=== PATIENT | male | born 1980 | race Two or more races ===

== ENCOUNTER 2023-09-10 22:52 | Inpatient (IN) | payer OTHER ==
[~2023-09-10] VITALS: Ht 175.3 cm; Wt 71.7 kg
[2023-09-10] MEDS: CLINDAMYCIN 600 MG in IV D5W 100 ML IV ONE (00:07)
[2023-09-10] MEDS ORDERED: IOHEXOL-350 100 ML VIAL IV ONE (23:24)
[2023-09-10] MEDS ORDERED: CT SWABBABLE VALVE TRANS SET 1 EA INFUS.SET MC ONE (23:25)
[2023-09-10] MEDS ORDERED: IV NS 0.9% 250 ML IV ONE (23:25)
[2023-09-10] MEDS ORDERED: ONDANSETRON HCL/PF 4 MG/2 ML VIAL ONE (23:28)
[2023-09-10] MEDS ORDERED: MORPHINE SULFATE INJ 4 MG/ML DISP.SYRIN ONE (23:28)
[2023-09-10] MEDS ORDERED: PIPERACI/TAZO 3.375GM/D5W 50ML PB IV ONE (23:28)
[2023-09-10] MEDS ORDERED: ACETAMINOPHEN ES 500 MG TABLET ONE (23:28)
[2023-09-10] MEDS ORDERED: ONDANSETRON HCL/PF 4 MG/2 ML VIAL IVP ONE (23:30)
[2023-09-10] MEDS ORDERED: IV NS 0.9% 1,000 ML BAG IV ONE (23:30)
[2023-09-10] MEDS ORDERED: PIPERACILLIN /TAZOBACTAM 3.375 G in IV D5W 50 ML IV ONE (23:30)
[2023-09-10] MEDS ORDERED: ACETAMINOPHEN ES 500 MG TABLET PO ONE (23:30)
[2023-09-10] MEDS ORDERED: MORPHINE SULFATE INJ 2 MG/ML DISP.SYRIN IV ONE (23:30)
[2023-09-10] MEDS ORDERED: VANCOMYCIN 1 GM in IV D5W 250 ML IV ONE (23:30)
[2023-09-10 23:31] LABS: BASOPHILS % (AUTO) 0.1 % (0.0-2.0); HEMATOCRIT 38 % (39-51); HEMOGLOBIN 12.2 g/dL (13.5-17.5); LYMPHOCYTES # (AUTO) 2.4 K/uL (0.8-4.8); LYMPHOCYTES % (AUTO) 19.7 % (20.0-44.0); MEAN CORPUSCULAR HEMOGLOBIN 29 PG (26.0-33.0); MEAN CORPUSCULAR HGB CONC 33 g/dl (31.0-36.0); MEAN CORPUSCULAR VOLUME 90 fL (80-96); MONOCYTES # (AUTO) 0.9 K/uL (0.1-1.30); MONOCYTES % (AUTO) 7.1 % (2.0-12.0); NEUTROPHILS # (AUTO) 8.9 K/uL (1.8-8.9); NEUTROPHILS % (AUTO) 73.1 % (43.0-81.0); PLATELET COUNT (AUTO) 183 K/uL (150-450); RED BLOOD CELL COUNT(AUTO) 4.17 MIL/uL (4.5-6.0); RED CELL DISTRIBUTION WIDTH 13.7 % (11.5-15.0); WHITE BLOOD COUNT (AUTO) 12.2 K/uL (4.3-11.0)
[2023-09-10 23:45] LABS: ALANINE AMINOTRANSFERASE 79 U/L (12-78); ALBUMIN 3.1 g/dL (3.4-5.0); ALKALINE PHOSPHATASE 151 U/L (46-116); ASPARTATE AMINOTRANSFERASE 35 U/L (15-37); BILIRUBIN,DIRECT 0.6 mg/dL (0.0-0.2); BILIRUBIN,TOTAL 1.9 mg/dL (0.2-1.0); CALCIUM, SERUM 8.5 mg/dL (8.5-10.1); CARBON DIOXIDE 28 mmol/L (21-32); CHLORIDE 93 mmol/L (98-107); CREATININE 1.2 mg/dL (0.6-1.3); GLUCOSE 377 mg/dL (74-106); POTASSIUM 4.6 mmol/L (3.5-5.1); SODIUM SERUM 128 mmol/L (136-145); TOTAL PROTEIN, SERUM 7.2 g/dL (6.4-8.2); UREA NITROGEN, BLOOD 15 mg/dL (7-18)
[2023-09-10 23:51] LABS: LACTIC ACID 3.4 mmol/L (0.4-2.0)
[2023-09-10 23:51] LABS: APPEARANCE,URINE CLEAR (CLEAR); BILIRUBIN,URINE NEGATIVE (NEGATIVE); BLOOD, URINE 1+ Ery/uL (NEGATIVE); COLOR,URINE YELLOW (YELLOW); KETONES,URINE 1+ mg/dL (NEGATIVE); LEUKOCYTE ESTERASE ,URINE NEGATIVE (NEGATIVE); NITRITE, URINE NEGATIVE (NEGATIVE); PROTEIN,URINE TRACE mg/dl (NEGATIVE); UGLUCOSE 3+ mg/dL (NEGATIVE)
[2023-09-10 23:52] LABS: ADD URINE CULTURE NO; BACTERIA,URINE Rare /HPF (None Seen); SQUAMOUS EPITHELIAL CELL,UR Few /HPF (None Seen); WBC,URINE 0-2 /HPF (0-3)
[2023-09-10 23:54] LABS: INR 1.31 (0.91-1.10); PARTIAL THROMBOPLASTIN TIME 34.7 SEC (24.3-34.3); PROTHROMBIN TIME 13.6 SECS (9.2-11.1)
[2023-09-11] VITALS (16 sets, daily range): BP systolic 98–126; BP diastolic 56–83; TEMP 97.7–98.7; O2SAT 97–100
[2023-09-11] MEDS ORDERED: CLINDAMYCIN 900 MG/6 ML VIAL ONE (00:04)
[2023-09-11] MEDS: CLINDAMYCIN 600 MG in IV D5W 100 ML IV ONE (00:07)
[2023-09-11] MEDS ORDERED: MORPHINE SULFATE INJ 2 MG/ML DISP.SYRIN IV ONE ×2 (00:30→07:30)
[2023-09-11] MEDS ORDERED: MORPHINE SULFATE INJ 4 MG/ML DISP.SYRIN ONE ×2 (00:59→09:10)
[2023-09-11] MEDS ORDERED: VANCOMYCIN 1 GM /D5W 250 ML PB IV ONE (01:50)
[2023-09-11 02:04] LABS: C-REACTIVE PROTEIN 23.57 mg/dL (0.0-0.30)
[2023-09-11] MEDS ORDERED: METF-440 PO (08:38)
[2023-09-11] MEDS ORDERED: QUET100T PO (08:38)
[2023-09-11] MEDS ORDERED: BUPR1FIL3 SL (08:38)
[2023-09-11] MEDS ORDERED: ONDA4TAB5 PO (08:38)
[2023-09-11] MEDS ORDERED: DEXTROSE 50%-WATER 50 ML DISP.SYRIN IV PRN (12:00)
[2023-09-11] MEDS: BLOOD SUGAR DIAGNOSTIC 1 EACH STRIP IN SCH ×2 (12:18→17:08)
[2023-09-11] MEDS: HYDROMORPHONE 1 MG/1 ML DISP.SYRIN IV PRN ×2 (12:19→15:32)
[2023-09-11] MEDS ORDERED: ONDANSETRON HCL/PF 4 MG/2 ML VIAL IV PRN (12:30)
[2023-09-11] MEDS: IV LR 1000 ML 1,000 ML IV PRN (12:52)
[2023-09-11] MEDS: ENOXAPARIN SODIUM 40 MG/0.4 ML DISP.SYRIN SQ SCH (13:30)
[2023-09-11] MEDS ORDERED: QUETIAPINE FUMARATE 100 MG TABLET PO PRN (13:30)
[2023-09-11] MEDS ORDERED: ONDANSETRON HCL/PF 4 MG/2 ML VIAL IVP PRN (13:30)
[2023-09-11] MEDS ORDERED: Z GUARD REMEDY 4 OZ OINT TP PRN (13:30)
[2023-09-11] MEDS: PIPERACILLIN /TAZOBACTAM 3.375 G in IV D5W 50 ML IV SCH (17:09)
[2023-09-11] MEDS ORDERED: MIDAZOLAM HCL 2 MG/2ML VIAL ONE (18:24)
[2023-09-11] MEDS ORDERED: FENTANYL PF 250MCG/5ML AMPUL ONE (18:24)
[2023-09-11] MEDS ORDERED: ROCURONIUM BROMIDE 50 MG/5 ML ONE (18:25)
[2023-09-11] MEDS ORDERED: LABETALOL HCL IV 100MG VIAL ONE (18:25)
[2023-09-11] MEDS ORDERED: LIDOCAINE 1% INJ 50 ML MDV IJ ONE (18:42)
[2023-09-11] MEDS ORDERED: BUPIVACAINE MPF 0.5% W/EPI INJ 30 ML VIAL ONE (18:43)
[2023-09-11] MEDS ORDERED: DAKINS FULL STRENGTH (0.5%) 480 ML BOTTLE TOP ONE (19:30)
[2023-09-11] MEDS ORDERED: HYDROMORPHONE INJ 2 MG/ML DISP.SYRIN ONE ×2 (19:50→20:37)
[2023-09-11] MEDS: CLINDAMYCIN 600 MG in IV D5W 50 ML IV SCH (21:39)
[2023-09-12] VITALS (33 sets, daily range): BP systolic 87–112; BP diastolic 57–75; TEMP 98.7–101; O2SAT 99–100
[2023-09-12] MEDS: PIPERACILLIN /TAZOBACTAM 3.375 G in IV D5W 50 ML IV SCH ×2 (00:23→05:27)
[2023-09-12] MEDS: IV LR 1000 ML 1,000 ML IV PRN ×2 (00:28→10:56)
[2023-09-12] MEDS: BLOOD SUGAR DIAGNOSTIC 1 EACH STRIP IN SCH ×4 (00:47→18:13)
[2023-09-12] MEDS: INSULIN REGULAR, HUMAN 100 UNIT/ML 3 ML VIAL SQ PRN ×4 (00:50→18:22)
[2023-09-12] MEDS: HYDROMORPHONE 1 MG/1 ML DISP.SYRIN IV PRN ×3 (04:06→20:32)
[2023-09-12] MEDS: CLINDAMYCIN 600 MG in IV D5W 50 ML IV SCH ×3 (04:36→20:33)
[2023-09-12 04:49] LABS: BASOPHILS % (AUTO) 0.2 % (0.0-2.0); EOSINOPHILS % (AUTO) 0.1 % (0.0-6.0); HEMATOCRIT 31 % (39-51); HEMOGLOBIN 10.4 g/dL (13.5-17.5); LYMPHOCYTES # (AUTO) 1.2 K/uL (0.8-4.8); LYMPHOCYTES % (AUTO) 18.6 % (20.0-44.0); MEAN CORPUSCULAR HEMOGLOBIN 30 PG (26.0-33.0); MEAN CORPUSCULAR HGB CONC 34 g/dl (31.0-36.0); MEAN CORPUSCULAR VOLUME 90 fL (80-96); MONOCYTES # (AUTO) 0.2 K/uL (0.1-1.30); MONOCYTES % (AUTO) 3.4 % (2.0-12.0); NEUTROPHILS % (AUTO) 77.7 % (43.0-81.0); PLATELET COUNT (AUTO) 100 K/uL (150-450); RED BLOOD CELL COUNT(AUTO) 3.43 MIL/uL (4.5-6.0); RED CELL DISTRIBUTION WIDTH 14.1 % (11.5-15.0); WHITE BLOOD COUNT (AUTO) 6.4 K/uL (4.3-11.0)
[2023-09-12 05:25] LABS: CALCIUM, SERUM 7.6 mg/dL (8.5-10.1); CREATININE 0.8 mg/dL (0.6-1.3); MAGNESIUM 1.8 mg/dL (1.8-2.4); PHOSPHORUS 1.9 mg/dL (2.5-4.9); POTASSIUM 3.5 mmol/L (3.5-5.1)
[2023-09-12] MEDS: ACETAMINOPHEN 325 MG TABLET PO PRN (08:13)
[2023-09-12] MEDS ORDERED: PANTOPRAZOLE 40 MG VIAL IV SCH (09:00)
[2023-09-12] MEDS: DAKINS QUARTER STRENGTH (0.125%) 480 ML BOTTLE TOP SCH (09:28)
[2023-09-12] MEDS ORDERED: K PHOS NEUTRAL 250 MG TABLET PO ONE (13:00)
[2023-09-12] MEDS: NICOTINE PATCH (21MG) 21 MG PATCH.TD24 TD SCH (13:15)
[2023-09-12] MEDS: PIPERACILLIN /TAZOBACTAM 3.375 G in IV D5W 100 ML IV SCH ×2 (13:47→21:35)
[2023-09-12] MEDS: ENOXAPARIN SODIUM 40 MG/0.4 ML DISP.SYRIN SQ SCH (13:52)
[2023-09-13] VITALS (24 sets, daily range): BP systolic 89–111; BP diastolic 56–78; TEMP 98.7–99.1; O2SAT 97–100
[2023-09-13] MEDS: IV LR 1000 ML 1,000 ML IV PRN ×3 (00:03→19:53)
[2023-09-13] MEDS: BLOOD SUGAR DIAGNOSTIC 1 EACH STRIP IN SCH ×5 (00:42→21:25)
[2023-09-13] MEDS: INSULIN REGULAR, HUMAN 100 UNIT/ML 3 ML VIAL SQ PRN ×5 (00:45→21:28)
[2023-09-13] MEDS: CLINDAMYCIN 600 MG in IV D5W 50 ML IV SCH ×3 (04:30→20:55)
[2023-09-13] MEDS: HYDROMORPHONE 1 MG/1 ML DISP.SYRIN IV PRN ×6 (04:31→22:31)
[2023-09-13] MEDS: PIPERACILLIN /TAZOBACTAM 3.375 G in IV D5W 100 ML IV SCH ×3 (05:18→20:54)
[2023-09-13] MEDS: NICOTINE PATCH (21MG) 21 MG PATCH.TD24 TD SCH (09:08)
[2023-09-13] MEDS: DAKINS QUARTER STRENGTH (0.125%) 480 ML BOTTLE TOP SCH (09:16)
[2023-09-13] MEDS: ENOXAPARIN SODIUM 40 MG/0.4 ML DISP.SYRIN SQ SCH (12:33)
[2023-09-13 17:06] LABS: INR 0.98 (0.91-1.10); PROTHROMBIN TIME 10.4 SECS (9.2-11.1)
[2023-09-13] MEDS ORDERED: DEXTROSE 50%-WATER 50 ML DISP.SYRIN IV PRN (20:00)
[2023-09-14] VITALS (28 sets, daily range): BP systolic 95–143; BP diastolic 53–90; TEMP 97.5–99.5; O2SAT 98–100
[2023-09-14] MEDS: HYDROMORPHONE 1 MG/1 ML DISP.SYRIN IV PRN ×11 (00:31→22:32)
[2023-09-14] MEDS: PIPERACILLIN /TAZOBACTAM 3.375 G in IV D5W 100 ML IV SCH ×3 (04:41→20:35)
[2023-09-14] MEDS: CLINDAMYCIN 600 MG in IV D5W 50 ML IV SCH ×3 (04:41→20:17)
[2023-09-14] MEDS: IV LR 1000 ML 1,000 ML IV PRN ×3 (06:13→23:27)
[2023-09-14] MEDS: NICOTINE PATCH (21MG) 21 MG PATCH.TD24 TD SCH (08:01)
[2023-09-14] MEDS: DAKINS QUARTER STRENGTH (0.125%) 480 ML BOTTLE TOP SCH (08:02)
[2023-09-14] MEDS: PANTOPRAZOLE 40 MG TABLET.DR PO SCH (08:14)
[2023-09-14] MEDS: BLOOD SUGAR DIAGNOSTIC 1 EACH STRIP IN SCH ×4 (08:15→22:37)
[2023-09-14] MEDS: INSULIN REGULAR, HUMAN 100 UNIT/ML 3 ML VIAL SQ PRN ×4 (08:20→22:30)
[2023-09-14 09:28] LABS: BASOPHILS % (AUTO) 0.4 % (0.0-2.0); EOSINOPHILS % (AUTO) 0.4 % (0.0-6.0); HEMATOCRIT 29 % (39-51); HEMOGLOBIN 9.8 g/dL (13.5-17.5); LYMPHOCYTES # (AUTO) 1.1 K/uL (0.8-4.8); LYMPHOCYTES % (AUTO) 13.4 % (20.0-44.0); MEAN CORPUSCULAR HEMOGLOBIN 30 PG (26.0-33.0); MEAN CORPUSCULAR HGB CONC 33 g/dl (31.0-36.0); MEAN CORPUSCULAR VOLUME 90 fL (80-96); MONOCYTES # (AUTO) 0.4 K/uL (0.1-1.30); MONOCYTES % (AUTO) 5.4 % (2.0-12.0); NEUTROPHILS # (AUTO) 6.5 K/uL (1.8-8.9); NEUTROPHILS % (AUTO) 80.4 % (43.0-81.0); PLATELET COUNT (AUTO) 114 K/uL (150-450); RED BLOOD CELL COUNT(AUTO) 3.26 MIL/uL (4.5-6.0); RED CELL DISTRIBUTION WIDTH 14.3 % (11.5-15.0); WHITE BLOOD COUNT (AUTO) 8.1 K/uL (4.3-11.0)
[2023-09-14 09:41] LABS: CALCIUM, SERUM 7.5 mg/dL (8.5-10.1); CREATININE 0.5 mg/dL (0.6-1.3); POTASSIUM 2.9 mmol/L (3.5-5.1)
[2023-09-14 09:48] LABS: LACTIC ACID 1.2 mmol/L (0.4-2.0)
[2023-09-14 10:00] LABS: MAGNESIUM 1.7 mg/dL (1.8-2.4); PHOSPHORUS 2.6 mg/dL (2.5-4.9)
[2023-09-14] MEDS ORDERED: POTASSIUM CHLORIDE 20 MEQ TAB.PRT.SR PO ONE (11:30)
[2023-09-14] MEDS: Magnesium 1GM/D5W 100ML PREMIX 100 ML IV SCH ×2 (12:10→12:38)
[2023-09-14] MEDS: ENOXAPARIN SODIUM 40 MG/0.4 ML DISP.SYRIN SQ SCH (12:39)
[2023-09-14 17:34] LABS: LACTIC ACID 2.3 mmol/L (0.4-2.0)
[2023-09-14 19:54] LABS: BILIRUBIN,DIRECT 0.3 mg/dL (0.0-0.2); BILIRUBIN,TOTAL 0.7 mg/dL (0.2-1.0)
[2023-09-14 20:02] LABS: LACTIC ACID REFLEX 2.2 mmol/L (0.4-1.9)
[2023-09-14] MEDS: ACETAMINOPHEN 325 MG TABLET PO PRN (20:14)
[2023-09-15] VITALS (22 sets, daily range): BP systolic 103–136; BP diastolic 56–84; TEMP 98.7–99; O2SAT 97–100
[2023-09-15] MEDS: CLINDAMYCIN 600 MG in IV D5W 50 ML IV SCH ×3 (04:28→21:09)
[2023-09-15] MEDS: PIPERACILLIN /TAZOBACTAM 3.375 G in IV D5W 100 ML IV SCH ×3 (04:29→21:08)
[2023-09-15] MEDS: HYDROMORPHONE 1 MG/1 ML DISP.SYRIN IV PRN ×6 (05:01→22:18)
[2023-09-15 05:15] LABS: CALCIUM, SERUM 7.7 mg/dL (8.5-10.1); CREATININE 0.5 mg/dL (0.6-1.3); PHOSPHORUS 3.4 mg/dL (2.5-4.9); POTASSIUM 3.2 mmol/L (3.5-5.1)
[2023-09-15 05:27] LABS: BASOPHILS # (AUTO) 0.1 K/uL (0.0-0.2); BASOPHILS % (AUTO) 0.6 % (0.0-2.0); EOSINOPHILS # (AUTO) 0.2 K/uL (0.0-0.7); EOSINOPHILS % (AUTO) 1.8 % (0.0-6.0); HEMATOCRIT 27 % (39-51); HEMOGLOBIN 9.2 g/dL (13.5-17.5); LYMPHOCYTES # (AUTO) 2.6 K/uL (0.8-4.8); LYMPHOCYTES % (AUTO) 29.8 % (20.0-44.0); MEAN CORPUSCULAR HEMOGLOBIN 30 PG (26.0-33.0); MEAN CORPUSCULAR HGB CONC 34 g/dl (31.0-36.0); MEAN CORPUSCULAR VOLUME 90 fL (80-96); MONOCYTES # (AUTO) 0.6 K/uL (0.1-1.30); MONOCYTES % (AUTO) 6.9 % (2.0-12.0); NEUTROPHILS # (AUTO) 5.3 K/uL (1.8-8.9); NEUTROPHILS % (AUTO) 60.9 % (43.0-81.0); PLATELET COUNT (AUTO) 142 K/uL (150-450); RED BLOOD CELL COUNT(AUTO) 3.04 MIL/uL (4.5-6.0); RED CELL DISTRIBUTION WIDTH 14.2 % (11.5-15.0); WHITE BLOOD COUNT (AUTO) 8.6 K/uL (4.3-11.0)
[2023-09-15] MEDS: IV LR 1000 ML 1,000 ML IV PRN ×2 (06:54→12:35)
[2023-09-15] MEDS: BLOOD SUGAR DIAGNOSTIC 1 EACH STRIP IN SCH ×4 (07:41→22:19)
[2023-09-15] MEDS: INSULIN REGULAR, HUMAN 100 UNIT/ML 3 ML VIAL SQ PRN ×4 (07:55→22:30)
[2023-09-15] MEDS: NICOTINE PATCH (21MG) 21 MG PATCH.TD24 TD SCH (08:01)
[2023-09-15] MEDS: PANTOPRAZOLE 40 MG TABLET.DR PO SCH (08:01)
[2023-09-15] MEDS: DAKINS QUARTER STRENGTH (0.125%) 480 ML BOTTLE TOP SCH (08:02)
[2023-09-15] MEDS ORDERED: POTASSIUM CHLORIDE 20 MEQ TAB.PRT.SR PO ONE (08:30)
[2023-09-15 10:30] LABS: ANISOCYTOSIS 1+; BASOPHILS % (MANUAL) 0 % (0.0-2.0); EOSINOPHILS % (MANUAL) 2 % (0-4); LYMPHOCYTES % (MANUAL) 24 % (16-48); MONOCYTES % (MANUAL) 7 % (0-11.0); NEUTROPHILS % (MANUAL) 67 (42-76); PLATELET ESTIMATE ADEQUATE
[2023-09-15] MEDS: ENOXAPARIN SODIUM 40 MG/0.4 ML DISP.SYRIN SQ SCH (12:35)
[2023-09-15] MEDS ORDERED: TRAZODONE 50 MG TABLET PO PRN (18:00)
== END 2023-09-15 23:10 | disposition short-term general hospital (02) | DRG 853 ==
LOC: ER 22:55 → ICU 09-11 10:37 → TELE 09-15 16:24
PROVIDERS: ADMIT Nurse Practitioner Acute Care; ATTEND Nurse Practitioner Acute Care
PROC: 0JBB0ZZ Excision of Perineum Subcutaneous Tissue and Fascia, Open Approach (ICD-10-PCS; principal; 2023-09-11)
PROC: 0JB80ZZ Excision of Abdomen Subcutaneous Tissue and Fascia, Open Approach (ICD-10-PCS; 2023-09-11)
PROC: 0HB9XZZ Excision of Perineum Skin, External Approach (ICD-10-PCS; 2023-09-11)
PROC: 0JBL0ZZ Excision of Right Upper Leg Subcutaneous Tissue and Fascia, Open Approach (ICD-10-PCS; 2023-09-11)
PROC: 05HA33Z Insertion of Infusion Device into Left Brachial Vein, Percutaneous Approach (ICD-10-PCS; 2023-09-11)
PROC: 05HB33Z Insertion of Infusion Device into Right Basilic Vein, Percutaneous Approach (ICD-10-PCS; 2023-09-12)
DX: A41.9 Sepsis, unspecified organism (principal); R65.21 Severe sepsis with septic shock; E11.52 Type 2 diabetes mellitus with diabetic peripheral angiopathy with gangrene; E87.1 Hypo-osmolality and hyponatremia; E87.20 Acidosis, unspecified; N17.9 Acute kidney failure, unspecified; N49.3 Fournier gangrene; N49.2 Inflammatory disorders of scrotum; F19.10 Other psychoactive substance abuse, uncomplicated; K42.9 Umbilical hernia without obstruction or gangrene; Z72.0 Tobacco use; E11.65 Type 2 diabetes mellitus with hyperglycemia; E86.1 Hypovolemia; E87.6 Hypokalemia; E87.8 Other disorders of electrolyte and fluid balance, not elsewhere classified; D64.9 Anemia, unspecified; N50.89 Other specified disorders of the male genital organs; Z91.199 Patient's noncompliance with other medical treatment and regimen due to unspecified reason; E80.6 Other disorders of bilirubin metabolism; K76.9 Liver disease, unspecified; J98.4 Other disorders of lung
CPT/HCPCS: 36410; 36415; 71045-TC; 76870-TC; 80048-TC; 80076-TC; 81001; 82247-TC; 82248-TC; 82962-TC; 83605-TC; 83690-TC; 83735-TC; 84100-TC; 85025-TC; 85385-TC; 85610-TC; 85652-TC; 85730-TC; 86140-TC; 86850-TC; 87040-TC; 87086-TC; A4217; A4223; A6253; A6402; A6403; C9113; C9803; G0378; J0330; J0690; J1170; J1650; J1815; J2250; J2270; J2405; J2543; J2704; J3010; J3370; J3475; J3490; J7030; J7042; J7050; J7060; J7120; Q9967